=== PATIENT | female | born 1955 | race Caucasian/White ===

== ENCOUNTER → 2018-07-14 | Outpatient (CLI) | payer OTHER ==
[~2018-07-14] MED LIST: ASPIRIN325 PO; BACTRIM DS TAB1 EACH PO; BENZAPRIL; BLOOD PRESSURE PILL; CALCIUM; HYDROCHLOROTHIA25 M1 PO; KLOR-CON 1010 MEQ PO; LEVOTHYROXINE0.05 MG PO; MAG-OX 400 TAB400 M1 PO; MAGNESIUM100 MG PO; POTASSIUM20; PRAVASTATIN SOD20 MG PO; PREMARIN; PREMARIN0.3 MG PO; PROMETHAZINE-C120 ML PO; ROVIN-CF OF TA1 EACH; SYMBICORT160 MCG/4. INH; TOPAMAX50 MG; ULTRAM 50MG TAB50 MG PO; VIBRAMYCIN 100100 MG PO; VICODIN 5-5001 EACH PO; VITAMIN D 5050000 I1 PO; ZINC CHELATE50 MG PO; ZINC10 MG PO
== END ==
LOC: RAD 01:48
DX: Z12.31 Encounter for screening mammogram for malignant neoplasm of breast (principal)